=== PATIENT | female | born 1990 | race American Indian/Alaskan Native ===

== ENCOUNTER 2016-09-23 19:03 | Emergency (ER) | payer OTHER ==
[2016-09-23] MEDS ORDERED: MORPHINE IV ONE (19:53)
[2016-09-23] MEDS ORDERED: NACL 0.9% 1000 ML 1,000 ML IV ONE ×2 (19:54→23:06)
[2016-09-23] MEDS ORDERED: ZOFRAN IV ONE (19:54)
--- NOTE | 2016-09-23 19:58 | Emergency Department Report ---
HPI - General Chief Complaint: Abdominal Pain Time Seen by Provider: 09/23/16 19:40 - HPI HPI: This is a 26-year-old Afro-[place]ov[place] female presents to the emergency department by EMS from home with complaint of a one-day history of abdominal pain, nausea, vomiting. She denies any fever, dysuria, vaginal bleeding or discharge. She does not have any past medical history. She was unable to take anything for symptoms second or 2 the vomiting. She does not have a primary care doctor. No recent travel or sick contacts at home. The pain is mostly mid abdomen but also sometimes radiates up to the top of her abdomen. There is no known alleviating or aggravating factors. An IV was placed and she was given some Zofran in route with EMS. ED Past Medical Hx - Past Medical History Previous Medical History?: No Additional medical history: Delivery five months ago vaginal - Social History Smoking Status: Never Smoker Substance Use Type: None - Medications Home Medications: Home Medications Medication Instructions Recorded Confirmed Last Taken Type HYDROcodone/APAP 5-325 [Bartley 1 each PO Q6HR PRN #8 tablet 09/24/16 Unknown Rx 5/325] Ondansetron [Zofran Odt] 4 mg PO Q8HR PRN #8 tab.rapdis 09/24/16 Unknown Rx ED Review of Systems ROS: Stated complaint: ABD PAIN Other details as noted in HPI Comment: All other systems reviewed and negative Constitutional: denies: chills, fever Eyes: denies: eye pain, eye discharge, vision change ENT: denies: ear pain, throat pain Respiratory: denies: cough, shortness of breath, wheezing Cardiovascular: denies: chest pain, palpitations Gastrointestinal: abdominal pain, nausea, vomiting Genitourinary: denies: urgency, dysuria, discharge Musculoskeletal: denies: back pain, joint swelling, arthralgia Skin: denies: rash, lesions Neurological: denies: headache, weakness, paresthesias Physical Exam - Physical Exam Vital Signs: Vital Signs 09/23/16 19:14 Temperature 97.8 F Pulse Rate 60 Respiratory 18 Rate Blood Pressure 119/71 O2 Sat by Pulse 99 Oximetry Physical Exam: GENERAL: The patient is well-developed well-nourished. HEENT: Normocephalic. Atraumatic. Extraocular motions are intact. Patient has moist mucous membranes. Pupils equal reactive to light bilaterally. NECK: Supple. Trachea is midline. CHEST/LUNGS: Clear to auscultation. There is no respiratory distress noted. HEART/CARDIOVASCULAR: Regular. There is no tachycardia. There is no gallop rub or murmur. ABDOMEN: Abdomen is soft. Generalized tenderness to palpation of the abdomen. No guarding or rebound tenderness. Patient has normal bowel sounds. There is no abdominal distention. SKIN: Skin is warm and dry. NEURO: The patient is awake, alert, and oriented. The patient is cooperative. The patient has no focal neurologic deficits. The patient has normal speech. MUSCULOSKELETAL: There is no tenderness or deformity. There is no limitation range of motion. There is no evidence of acute injury. ED Course Vital Signs 09/23/16 19:14 Temperature 97.8 F Pulse Rate 60 Respiratory 18 Rate Blood Pressure 119/71 O2 Sat by Pulse 99 Oximetry ED Medical Decision Making - Lab Data Result diagrams: 09/23/16 20:31 09/23/16 20:31 - Radiology Data Radiology results: report reviewed, image reviewed interpreted by me: Abdominal x-ray shows nonspecific nonobstructive bowel gas. EXAM: CT ABDOMEN PELVIS W CON HISTORY: abd pain COMPARISON: None available. TECHNIQUE: Contiguous axial images were obtained. Additional sagittal and coronal reformatted images were obtained. Administration of IV contrast given per institution protocol. Images submitted for interpretation. 100 cc Omnipaque [id number]. FINDINGS: Lung bases are clear. No calcified gallstones or biliary dilatation. Mild diffuse fatty infiltration of the liver. Spleen and pancreas are grossly unremarkable. Mild nodular thickening of the adrenal glands. 6 millimeter left renal cyst. No solid renal lesion. No hydronephrosis. Aorta and IVC normal in caliber. Urinary bladder, uterus, left ovary grossly unremarkable. Cystic structure in the right ovary which may reflect a dominant follicle measuring 2.0 x 1.3 centimeters. Trace fluid in the pelvis within physiologic limits. No loculated collection. Several fluid-filled small bowel loops lower abdomen and pelvis. Mild enteritis cannot be excluded. No bowel obstruction. The appendix is partially gas-filled and normal in caliber measuring 5 millimeters. No adjacent fat stranding or fluid. Tiny supraumbilical hernia containing fat only. Bony pelvis and lumbar spine are grossly intact. IMPRESSION: 2 centimeter right ovarian cystic structure which may reflect a dominant follicle. Trace fluid in the pelvis. Several fluid-filled small bowel loops lower abdomen and pelvis. Mild enteritis cannot be excluded. No bowel obstruction. Remaining bowel loops are normal in caliber. The appendix is normal in caliber. - Medical Decision Making 26-year-old female presents to the emergency department with abdominal pain, nausea, vomiting. The patient is very tender to palpation on physical examination but abdomen is soft and does not appear to be a toxic a rigid abdomen. Vital signs stable throughout her ED course including being afebrile. Patient's labs are mostly unremarkable. There is a mild leukocytosis and there are some signs of dehydration with a decreased bicarbonate level and 80 ketones in the urine. Belly labs normal including bilirubin, lipase and LFTs. Abdominal x-ray does not show any acute process. CT of the abdomen and pelvis with IV contrast shows ovarian cysts. This may be the etiology of her pain but I do not believe that it is the cause of her nausea and/or vomiting. However the patient was given some pain medication and IV fluid resuscitation and upon reevaluation she is feeling greatly improved. She will be discharged home with a referral for primary care, [facility] and she'll be given some pain medication and Zofran. She'll return to the ER with any worsening of her symptoms or any acute distress. - Differential Diagnosis gastroenteritis, , fibroids, diverticulitis, colitis Critical Care Time: No Critical care attestation.: If time is entered above; I have spent that time in minutes in the direct care of this critically ill patient, excluding procedure time. ED Disposition Clinical Impression: Ovarian cyst, Dehydration Abdominal pain Qualifiers: Abdominal location: generalized Qualified Code(s): R10.84 - Generalized abdominal pain Nausea & vomiting Qualifiers: Vomiting type: unspecified Vomiting Intractability: non-intractable Qualified Code(s): R11.2 - Nausea with vomiting, unspecified Disposition: DISCHARGED TO HOME OR SELFCARE Is pt being admited?: No Condition: Stable Instructions: Ovarian Cyst (ED), Dehydration (ED), Acute Nausea and Vomiting ( ED), Abdominal Pain (ED) Additional Instructions: Please increase your oral rehydration. Return to the emergency department with any worsening of her symptoms, intractable fever, intractable vomiting or any acute distress. Follow-up with a primary care doctor in the next few days without fail. You've been prescribed a medication that is sedating. Therefore this medication cannot be mixed with alcohol, or taken prior to driving, working , or being responsible for children. Prescriptions: HYDROcodone/APAP 5-325 [Bartley 5/325] 1 each PO Q6HR PRN #8 tablet PRN Reason: Pain Ondansetron [Zofran Odt] 4 mg PO Q8HR PRN #8 tab.rapdis PRN Reason: Nausea Referrals: [facility] [Outside] - 3-5 Days PRIMARY CAREMD [Primary Care Provider] - 3-5 Days KATINA SMITH MD [Staff Physician] - 3-5 Days [facility] [Provider Group] - 3-5 Days [facility] [Provider Group] - 3-5 Days Time of Disposition: 02:01
[2016-09-23 21:00] LABS: Hematocrit 39.9 % (30.3-42.9); Hemoglobin 12.5 gm/dl (10.1-14.3); Mean Corpuscular HGB Conc 31 % (30-34); Mean Corpuscular Volume 77 fl (79-97); Platelet Count 342 K/mm3 (140-440); Red Blood Count 5.15 M/mm3 (3.65-5.03); Red Cell Distribution Width 16.3 % (13.2-15.2); White Blood Count 12.1 K/mm3 (4.5-11.0)
[2016-09-23 21:02] LABS: Mean Corpuscular Hemoglobin 24 pg (28-32)
[2016-09-23 21:19] LABS: Alanine Aminotransferase 8 units/L (7-56); Albumin 4.1 g/dL (3.9-5); Albumin/Globulin Ratio 1.4 %; Alkaline Phosphatase 50 units/L (35-129); Anion Gap 23 mmol/L; Blood Urea Nitrogen 9 mg/dL (7-17); Carbon Dioxide 19 mmol/L (22-30); Chloride 100.4 mmol/L (98-107); Glucose 79 mg/dL (65-100); Lipase 11 units/L (13-60); Potassium 4.2 mmol/L (3.6-5.0); Sodium 138 mmol/L (137-145); Total Protein 7.1 g/dL (6.3-8.2)
[2016-09-23 23:11] LABS: Basophils % (Manual) 0 % (0.0-1.8); Blastocytes % (Manual) 0 %; Eosinophils % (Manual) 0 % (0.0-4.3)
[2016-09-23 23:12] LABS: Diff Status Complete; Hypochromasia 1+
[2016-09-23] MEDS ORDERED: NACL ONE (23:16)
[2016-09-23 23:23] LABS: Bilirubin,Urine NEG (Negative); Blood,Urine NEG (Negative); Ketones,Urine 80 mg/dL (Negative); Leukocyte Esterase,Urine NEG (Negative); Mucus,Urine 1+ /HPF; Nitrite,Urine NEG (Negative); Urobilinogen,Urine < 2.0 mg/dL (<2.0)
[2016-09-24] MEDS ORDERED: SUBLIMAZE ONE (00:31)
[2016-09-24] MEDS ORDERED: SUBLIMAZE IV ONE (00:42)
--- NOTE | 2016-09-24 01:54 | Cat Scan Report ---
FINAL REPORT EXAM: CT ABDOMEN PELVIS W CON HISTORY: abd pain COMPARISON: None available. TECHNIQUE: Contiguous axial images were obtained. Additional sagittal and coronal reformatted images were obtained. Administration of IV contrast given per institution protocol. Images submitted for interpretation. 100 cc Omnipaque [id number]. FINDINGS: Lung bases are clear. No calcified gallstones or biliary dilatation. Mild diffuse fatty infiltration of the liver. Spleen and pancreas are grossly unremarkable. Mild nodular thickening of the adrenal glands. 6 millimeter left renal cyst. No solid renal lesion. No hydronephrosis. Aorta and IVC normal in caliber. Urinary bladder, uterus, left ovary grossly unremarkable. Cystic structure in the right ovary which may reflect a dominant follicle measuring 2.0 x 1.3 centimeters. Trace fluid in the pelvis within physiologic limits. No loculated collection. Several fluid-filled small bowel loops lower abdomen and pelvis. Mild enteritis cannot be excluded. No bowel obstruction. The appendix is partially gas-filled and normal in caliber measuring 5 millimeters. No adjacent fat stranding or fluid. Tiny supraumbilical hernia containing fat only. Bony pelvis and lumbar spine are grossly intact. IMPRESSION: 2 centimeter right ovarian cystic structure which may reflect a dominant follicle. Trace fluid in the pelvis. Several fluid-filled small bowel loops lower abdomen and pelvis. Mild enteritis cannot be excluded. No bowel obstruction. Remaining bowel loops are normal in caliber. The appendix is normal in caliber.
[2016-09-24] MEDS ORDERED: BENTYL ONE (03:06)
[2016-09-24] MEDS ORDERED: BENTYL PO ONE (03:07)
[2016-09-24 05:41] VITALS: BP 132/79
--- NOTE | 2016-09-24 08:54 | XRay Report ---
ABDOMEN RADIOGRAPHS INDICATION: Abdominal pain. COMPARISON: None similar at this institution. FINDINGS: Frontal abdominal radiographs demonstrate nonobstructive bowel gas pattern. No focal suspicious calcifications, pneumatosis or pneumoperitoneum. Umbilical piercing ornament. Small left hemipelvis phleboliths. Clear visualized lung bases. Top normal heart size. Unremarkable bones. EKG leads. CONCLUSION: No acute abdominal radiographic abnormality, as described. Thank you for the opportunity to participate in this patient's care.
== END 2016-09-24 03:35 | disposition home or self-care (01) ==
LOC: ED 19:03
DX: N83.201 Unspecified ovarian cyst, right side (principal); E86.0 Dehydration
CPT/HCPCS: 36415; 74020; 74177; 80053; 81001; 81025; 83690; 84703; 85007; 85025; 96361; 96374; 96375; 99285; J2270; J2405; J3010; J7030; Q9967